=== PATIENT | female | born 1995 | race Caucasian/White ===

== ENCOUNTER 2018-04-26 09:33 | Emergency (ER) | payer BC ==
[2018-04-26] MEDS ORDERED: Sodium Chloride 0.9% 1,000 ML IV ONE (10:06)
[2018-04-26] MEDS ORDERED: Sodium Chloride 0.9% 10 ML Syringe FLUSH PRN (10:06)
[2018-04-26] MEDS ORDERED: Sodium Chloride 0.9% 2.5 ML Syringe FLUSH PRN (10:06)
[2018-04-26] MEDS ORDERED: Ondansetron 4 MG/2 ML SDV IVPUSH ONE (10:06)
--- NOTE | 2018-04-26 10:07 | EDM.PDOC ---
ED HPI GENERAL MEDICAL PROBLEM - General Chief Complaint: Gastrointestinal Problem Stated Complaint: FLU SYMPTOMS Time Seen by Provider: 04/26/18 10:07 Source of Information: Reports: Patient History Limitations: Reports: Intoxication - History of Present Illness INITIAL COMMENTS - FREE TEXT/NARRATIVE: HISTORY AND PHYSICAL: History of present illness: Patient is a 22-year-old female approximately 7 weeks gestation here with complaint of nausea and vomiting. LMP 03/13/18. She has had confirmation of at [facility] and has her first OB appointment with Dr. Farfan in 2 days. She states she has had nausea and vomiting for the past 3 weeks but has been worse in the past 3 days. States she can't keep anything down, vomiting every time she drinks water. She has been taking vitamin B6 and unisom as well as diclegis without any relief of symptoms. She denies any abdominal pain or cramping, vaginal bleeding or discharge, urinary symptoms, fevers, chills, diarrhea. She does report a mild cough. She denies any significant past medical history. Review of systems: As per history of present illness and below otherwise all systems reviewed and negative. Past medical history: As per history of present illness and as reviewed below otherwise noncontributory. Surgical history: As per history of present illness and as reviewed below otherwise noncontributory. Social history: No reported history of drug or alcohol abuse. Family history: As per history of present illness and as reviewed below otherwise noncontributory. Physical exam: General: Patient sitting comfortably in no acute distress and nontoxic appearing HEENT: Mucous membranes dry. Atraumatic, normocephalic, pupils reactive, negative for conjunctival pallor or scleral icterus, throat clear, neck supple, nontender, trachea midline. No meningeal signs. Lungs: Clear to auscultation, breath sounds equal bilaterally, chest nontender. Heart: S1S2, regular, negative for clicks, rubs, or overt murmur. Abdomen: Soft, nondistended, nontender. Negative for masses or hepatosplenomegaly. Negative for costovertebral tenderness. Pelvis: Stable nontender. Genitourinary: Deferred. Rectal: Deferred. Extremities: Atraumatic, negative for cords or calf pain. Neurovascular unremarkable. Neuro: Awake, alert, oriented. Cranial nerves II through XII unremarkable. Cerebellum unremarkable. Motor and sensory unremarkable throughout. Exam nonfocal. Notes: Diagnostics: CBC, CMP, UA Therapeutics: 1L Normal Saline IV 4mg Zofran IV Prescriptions: Zofran 4mg ODT Impression: Nausea/vomiting in first trimester Plan: 1. Drink plenty of small sips of fluids throughout the day. Zofran as needed for nausea. 2. Follow up with OB 3. Return to ED as needed as discussed Definitive disposition and diagnosis as appropriate pending reevaluation and review of above. 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 Musculoskeletal History: Reports: None Neurological History: Reports: None Psychiatric History: Reports: Anxiety Endocrine/Metabolic History: Reports: None Hematologic History: Reports: None Immunologic History: Reports: None Oncologic (Cancer) History: Reports: None Dermatologic History: Reports: None - Infectious Disease History Infectious Disease History: Reports: Chicken Pox - Past Surgical History Head Surgeries/Procedures: Reports: None HEENT Surgical History: Reports: Adenoidectomy, Tonsillectomy Cardiovascular Surgical History: Reports: None Respiratory Surgical History: Reports: None GI Surgical History: Reports: None Female Surgical History: Reports: None Endocrine Surgical History: Reports: None Neurological Surgical History: Reports: None Musculoskeletal Surgical History: Reports: None Oncologic Surgical History: Reports: None Dermatological Surgical History: Reports: None Social & Family History - Family History Family Medical History: Noncontributory - Tobacco Use Smoking Status *Q: Never Smoker Second Hand Smoke Exposure: No - Caffeine Use Caffeine Use: Reports: Soda - Recreational Drug Use Recreational Drug Use: No ED ROS GENERAL - Review of Systems Review Of Systems: ROS reveals no pertinent complaints other than HPI. ED EXAM - Physical Exam Exam: See Below (see dictation) Course - Vital Signs Last Recorded V/S: Last Vital Signs Temp 97.4 F 04/26/18 09:42 Pulse 86 04/26/18 09:42 Resp 18 04/26/18 09:42 BP 124/87 04/26/18 09:42 Pulse Ox 99 04/26/18 09:42 - Orders/Labs/Meds Orders: Active Orders 24 hr Category Date Time Status Sodium Chloride 0.9% [Saline Flush] Med 04/26/18 10:06 Active 10 ml FLUSH ASDIRECTED PRN Sodium Chloride 0.9% [Saline Flush] Med 04/26/18 10:06 Active 2.5 ml FLUSH ASDIRECTED PRN Saline Lock Insert [OM.PC] Stat Oth 04/26/18 10:06 Ordered Medication Orders Sodium Chloride (Saline Flush) 10 ml FLUSH ASDIRECTED PRN PRN Reason: Keep Vein Open Sodium Chloride (Saline Flush) 2.5 ml FLUSH ASDIRECTED PRN PRN Reason: Keep Vein Open Labs: Laboratory Tests 04/26/18 04/26/18 04/26/18 Range/Units 10:21 10:21 12:18 WBC 8.73 (4.0-11.0) K/uL RBC 4.83 (4.30-5.90) M/uL Hgb 14.0 (12.0-16.0) g/dL Hct 39.9 (36.0-46.0) % MCV 82.6 (80.0-98.0) fL MCH 29.0 (27.0-32.0) pg MCHC 35.1 (31.0-37.0) g/dL RDW Std Deviation 37.3 (28.0-62.0) fl RDW Coeff of Dean 12 (11.0-15.0) % Plt Count 324 (150-400) K/uL MPV 9.80 (7.40-12.00) fL Neut % (Auto) 74.2 (48.0-80.0) % Lymph % (Auto) 18.4 (16.0-40.0) % Bryan % (Auto) 7.2 (0.0-15.0) % Eos % (Auto) 0.0 (0.0-7.0) % Baso % (Auto) 0.2 (0.0-1.5) % Neut # (Auto) 6.5 H (1.4-5.7) K/uL Lymph # (Auto) 1.6 (0.6-2.4) K/uL Bryan # (Auto) 0.6 (0.0-0.8) K/uL Eos # (Auto) 0.0 (0.0-0.7) K/uL Baso # (Auto) 0.0 (0.0-0.1) K/uL Nucleated RBC % 0.0 /100WBC Nucleated RBCs # 0 K/uL Sodium 134 L (136-145) mmol/L Potassium 3.3 L (3.5-5.1) mmol/L Chloride 101 (98-107) mmol/L Carbon Dioxide 18.4 L (21.0-32.0) mmol/L BUN 8 (7.0-18.0) mg/dL Creatinine 0.6 (0.6-1.0) mg/dL Est Cr Clr Drug Dosing 103.85 mL/min Estimated GFR (MDRD) > 60.0 ml/min Glucose 75 (74-106) mg/dL Calcium 9.7 (8.5-10.1) mg/dL Total Bilirubin 0.8 (0.2-1.0) mg/dL AST 13 L (15-37) IU/L ALT 23 (14-63) IU/L Alkaline Phosphatase 52 (46-116) U/L Total Protein 7.9 (6.4-8.2) g/dL Albumin 4.4 (3.4-5.0) g/dL Globulin 3.5 (2.6-4.0) g/dL Albumin/Globulin Ratio 1.3 (0.9-1.6) Urine Color YELLOW Urine Appearance CLEAR Urine pH 6.0 (5.0-8.0) Ur Specific Finley >= 1.030 (1.001-1.035) Urine Protein TRACE H (NEGATIVE) mg/dL Urine Glucose (UA) NEGATIVE (NEGATIVE) mg/dL Urine Ketones >=80 (NEGATIVE) mg/dL Urine Occult Blood NEGATIVE (NEGATIVE) Urine Nitrite NEGATIVE (NEGATIVE) Urine Bilirubin SMALL H (NEGATIVE) Urine Ictotest NEGATIVE Urine Urobilinogen 0.2 (<2.0) EU/dL Ur Leukocyte Esterase NEGATIVE (NEGATIVE) Urine RBC 0-1 (0-2/HPF) Urine WBC 0-1 (0-5/HPF) Ur Epithelial Cells OCCASIONAL (NONE-FEW) Urine Bacteria RARE (NEGATIVE) Meds: Medications Generic Name Dose Route Start Last Admin Trade Name Freq PRN Reason Stop Dose Admin Sodium Chloride 10 ml 04/26/18 10:06 Saline Flush FLUSH ASDIRECTED PRN Keep Vein Open Sodium Chloride 2.5 ml 04/26/18 10:06 Saline Flush FLUSH ASDIRECTED PRN Keep Vein Open Discontinued Medications Generic Name Dose Route Start Last Admin Trade Name Sumaya PRN Reason Stop Dose Admin Sodium Chloride 1,000 mls @ 999 mls/hr 04/26/18 10:06 04/26/18 10:18 Normal Saline IV 04/26/18 11:06 999 mls/hr STAT ONE Administration Ondansetron HCl 4 mg 04/26/18 10:06 04/26/18 10:18 Zofran IVPUSH 04/26/18 10:07 4 mg ONETIME ONE Administration Departure - Departure Time of Disposition: 12:31 Disposition: Home, Self-Care 01 Condition: Good Clinical Impression: Vomiting of - Discharge Information Referrals: Enriqueta Jane, CHARGE POSTER [Primary Care Provider] - Forms: ED Department Discharge Additional Instructions: The following information is given to patients seen in the emergency department who are being discharged to home. This information is to outline your options for follow-up care. We provide all patients seen in our emergency department with a follow-up referral. The need for follow-up, as well as the timing and circumstances, are variable depending upon the specifics of your emergency department visit. If you don't have a primary care physician on staff, we will provide you with a referral. We always advise you to contact your personal physician following an emergency department visit to inform them of the circumstance of the visit and for follow-up with them and/or the need for any referrals to a consulting specialist. The emergency department will also refer you to a specialist when appropriate. This referral assures that you have the opportunity for follow-up care with a specialist. All of these measure are taken in an effort to provide you with optimal care, which includes your follow-up. Under all circumstances we always encourage you to contact your private physician who remains a resource for coordinating your care. When calling for follow-up care, please make the office aware that this follow-up is from your recent emergency room visit. If for any reason you are refused follow-up, please contact the [facility] Emergency Department at and asked to speak to the emergency department charge nurse. [facility] [place] [address] [place] [id number] 1. Drink plenty of small sips of fluids throughout the day. Zofran as needed for nausea. 2. Follow up with OB 3. Return to ED as needed as discussed - My Orders Last 24 Hours: My Active Orders 04/26/18 10:06 Sodium Chloride 0.9% [Saline Flush] 10 ml FLUSH ASDIRECTED PRN Sodium Chloride 0.9% [Saline Flush] 2.5 ml FLUSH ASDIRECTED PRN Saline Lock Insert [OM.PC] Stat - Assessment/Plan Last 24 Hours: My Active Orders 04/26/18 10:06 Sodium Chloride 0.9% [Saline Flush] 10 ml FLUSH ASDIRECTED PRN Sodium Chloride 0.9% [Saline Flush] 2.5 ml FLUSH ASDIRECTED PRN Saline Lock Insert [OM.PC] Stat
[2018-04-26 10:55] LABS: CHLORIDE,CL 101 mmol/L (98-107); SODIUM,NA 134 mmol/L (136-145)
== END 2018-04-26 13:02 | disposition home or self-care (01) ==
LOC: MW.ED 09:33
DX: O21.9 Vomiting of pregnancy, unspecified (principal); Z3A.01 Less than 8 weeks gestation of pregnancy
CPT/HCPCS: 36415; 80053; 81001; 85025; 87804; 96361; 96374; 99284; J2405; J7040

== ENCOUNTER 2018-12-15 00:29 | Inpatient (IN) | payer OTHER ==
[2018-12-15] MEDS ORDERED: Butorphanol 1 MG/ML SDV IVPUSH PRN (01:59)
[2018-12-15] MEDS ORDERED: Sodium Chloride 0.9% 10 ML Syringe FLUSH PRN (01:59)
[2018-12-15] MEDS ORDERED: Methylergonovine 0.2 MG/1 ML Amp IM PRN (01:59)
[2018-12-15] MEDS ORDERED: Misoprostol 200 MCG Tab PO PRN (01:59)
[2018-12-15] MEDS ORDERED: Lidocaine 1% 50 ML MDV INJECT PRN (01:59)
[2018-12-15] MEDS ORDERED: Tranexamic Acid 1,000 MG in Sodium Chloride 0.9% 100 ML IV PRN (01:59)
[2018-12-15] MEDS ORDERED: Sodium Chloride 0.9% 2.5 ML Syringe FLUSH PRN (01:59)
[2018-12-15] MEDS ORDERED: Carboprost Tromethamine 250 MCG/1 ML Amp IM PRN (01:59)
[2018-12-15] MEDS ORDERED: Water For Irrigation,Sterile 1,000 ML Container IRR PRN (01:59)
[2018-12-15] MEDS ORDERED: Sodium Chloride 0.9% 10 ML SDV IV PRN (01:59)
[2018-12-15] MEDS ORDERED: Oxytocin/0.9 % Sodium Chloride 30 UNIT/500 ML BAG IV SCH (02:00)
[2018-12-15] MEDS: Lactated Ringers 1,000 ML IV SCH ×4 (02:24→10:25)
[2018-12-15] MEDS: Ondansetron 4 MG/2 ML SDV IVPUSH PRN ×2 (03:10→11:33)
[2018-12-15] MEDS ORDERED: Ropivacaine HCl/PF 100 ML ONE (03:38)
[2018-12-15] MEDS ORDERED: fentaNYL 100 MCG/2 ML SDV ONE ×2 (03:38→08:52)
--- NOTE | 2018-12-15 04:06 | PCM.PREANE ---
Preanesthetic Assessment - Anesthesia/Transfusion/Family Hx Anesthesia History: Prior Anesthesia Without Reaction Family History of Anesthesia Reaction: No Transfusion History: No Prior Transfusion(s) - Physical Assessment Height: 1.52 m Weight: 60.781 kg ASA Class: 1 Mental Status: Alert & Oriented x3 Dentition: Reports: Normal Dentition - Lab Values: Laboratory Last Values WBC 14.90 K/uL (4.0-11.0) H 12/15/18 02:15 RBC 3.77 M/uL (4.30-5.90) L 12/15/18 02:15 Hgb 11.8 g/dL (12.0-16.0) L 12/15/18 02:15 Hct 33.0 % (36.0-46.0) L 12/15/18 02:15 MCV 87.5 fL (80.0-98.0) 12/15/18 02:15 MCH 31.3 pg (27.0-32.0) 12/15/18 02:15 MCHC 35.8 g/dL (31.0-37.0) 12/15/18 02:15 RDW Std Deviation 42.9 fl (28.0-62.0) 12/15/18 02:15 RDW Coeff of Dean 13 % (11.0-15.0) 12/15/18 02:15 Plt Count 190 K/uL (150-400) 12/15/18 02:15 MPV 10.40 fL (7.40-12.00) 12/15/18 02:15 Nucleated RBC % 0.0 /100WBC 12/15/18 02:15 Nucleated RBCs # 0 K/uL 12/15/18 02:15 Blood Type A POSITIVE 12/15/18 02:15 Antibody Screen NEGATIVE 12/15/18 02:15 - Allergies Allergies/Adverse Reactions: Allergies Allergy/AdvReac Type Severity Reaction Status Date / Time No Known Allergies Allergy Verified 04/26/18 09:42 - Acknowledgements Anesthesia Type Planned: Epidural Pt an Appropriate Candidate for the Planned Anesthesia: Yes Alternatives and Risks of Anesthesia Discussed w Pt/Guardian: Yes Pt/Guardian Understands and Agrees with Anesthesia Plan: Yes PreAnesthesia Questionnaire HEENT History: Reports: None Cardiovascular History: Reports: None Respiratory History: Reports: Asthma Gastrointestinal History: Reports: None Genitourinary History: Reports: None 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: Musculoskeletal History: Reports: None Neurological History: Reports: None Psychiatric History: Reports: Anxiety Endocrine/Metabolic History: Reports: None Hematologic History: Reports: None Immunologic History: Reports: None Oncologic (Cancer) History: Reports: None Dermatologic History: Reports: None - Infectious Disease History Infectious Disease History: Reports: Chicken Pox - Past Surgical History Head Surgeries/Procedures: Reports: None HEENT Surgical History: Reports: Adenoidectomy, Oral Surgery, Tonsillectomy Other HEENT Surgeries/Procedures: wisdom teeth extraction Cardiovascular Surgical History: Reports: None Respiratory Surgical History: Reports: None GI Surgical History: Reports: None Female Surgical History: Reports: None Endocrine Surgical History: Reports: None Neurological Surgical History: Reports: None Musculoskeletal Surgical History: Reports: None Oncologic Surgical History: Reports: None Dermatological Surgical History: Reports: None - SUBSTANCE USE Smoking Status *Q: Never Smoker Second Hand Smoke Exposure: No Recreational Drug Use History: No - HOME MEDS Home Medications: Home Meds Nausea Medication 1 dose PO DAILY 04/26/18 [History] Ondansetron [Zofran ODT] 4 mg PO Q6H PRN #10 tab.dis 04/26/18 [Rx] Albuterol Sulfate [Proair Hfa] 2 puff PO ASDIRECTED PRN 12/15/18 [History] B6/mg/Turm/Herlinda/Anis/Gar/Gin/Sp [Morning Sickless Combo Pack] 1 tab PO DAILY [History] Docusate Sodium [Colace] 1 tab PO DAILY 12/15/18 [History] Doxylamine Succinate [Unisom] 1 tab PO DAILY 12/15/18 [History] - CURRENT (IN HOUSE) MEDS Current Meds: Current Medications Butorphanol Tartrate (Stadol) 1 mg IVPUSH Q1H PRN PRN Reason: Pain Last Admin: 12/15/18 02:25 Dose: 1 mg Carboprost Tromethamine (Hemabate Ds) 250 mcg IM ASDIRECTED PRN PRN Reason: Post Hemorrhage Lactated Ringer's (Ringers, Lactated) 1,000 mls @ 150 mls/hr IV ASDIRECTED STARLA Last Admin: 12/15/18 03:41 Dose: 999 mls/hr Oxytocin/Sodium Chloride (Oxytocin 30 Unit/500 Ml-Ns) 30 unit in 500 mls @ 500 mls/hr IV TITRATE STARLA Tranexamic Acid 1,000 mg/ (Sodium Chloride) 110 mls @ 660 mls/hr IV ONETIME PRN PRN Reason: Bleeding Lidocaine HCl (Xylocaine 1%) 50 ml INJECT ONETIME PRN PRN Reason: Laceration repair Methylergonovine Maleate (Methergine) 0.2 mg IM ASDIRECTED PRN PRN Reason: Post Hemorrhage Misoprostol (Cytotec) 200 mcg PO ONETIME PRN PRN Reason: Post Hemorrhage Ondansetron HCl (Zofran) 4 mg IVPUSH Q6H PRN PRN Reason: Nausea/Vomiting Last Admin: 12/15/18 03:10 Dose: 4 mg Sodium Chloride (Saline Flush) 10 ml FLUSH ASDIRECTED PRN PRN Reason: Keep Vein Open Sodium Chloride (Saline Flush) 2.5 ml FLUSH ASDIRECTED PRN PRN Reason: Keep Vein Open Sodium Chloride (Normal Saline) 10 ml IV ASDIRECTED PRN PRN Reason: IV Use Sterile Water (Sterile Water For Irrigation) 1,000 ml IRR ASDIRECTED PRN PRN Reason: delivery Discontinued Medications Fentanyl (Sublimaze) Confirm Administered Dose 100 mcg .ROUTE .STFive-Thirty-MED ONE Stop: 12/15/18 03:39 Ropivacaine (Naropin 0.2%) Confirm Administered Dose 100 mls @ as directed .ROUTE .STK-MED ONE Stop: 12/15/18 03:39
--- NOTE | 2018-12-15 04:10 | PCM.PRNOTE ---
- Free Text/Narrative Note: Anes Note 0335 Patient requests epidural for L&D. Sitting position. Level L3-L4, midline approach. Chloraprep scrub to lumbar area. Sterile fenestrated drape applied. Steril technique. Epidural space easily achieved second attempt. DORIS at 4 cm. Epidural cath threaded to 9 cm. Sterile adhesive dressing applied. 0355 Test dose 3 cc 1.5% lido with epi negative. 0358 load 10 cc 0.2% ropivicaine with 1 mcg/cc fentanyl in slow divided doses. 0402 Tire Man started with same solution at 8 cc hr with 6 cc q 20 min prn bolus. Cristopher Well. Time with patient [id number] Morgan Kirkpatrick MACHINE CLOTH TRIMMER
[2018-12-15] MEDS ORDERED: Bupivacaine 0.5% 10 ML SDV ONE (07:28)
--- NOTE | 2018-12-15 07:37 | PCM.SN ---
- Free Text/Narrative Note: Called by nursing as the patient is having increased pain in her pelvis that has not been relieved by the epidural MANAGER QUALITY IMPROVEMENT. 0.5% Bupivacaine 5mL given via epidural catheter. VSS. Pt states her pain is improving at this time. Anesthesia time: [id number]
[2018-12-15] MEDS ORDERED: Acetaminophen 500 MG Tab PO PRN (14:19)
[2018-12-15] MEDS ORDERED: Witch Hazel Medicated Pads 40/Jar TOP PRN (14:19)
[2018-12-15] MEDS ORDERED: Aluminum Hydroxide/Magnesium Hydroxide/Simethicone Susp 30 ML Cup PO PRN (14:19)
[2018-12-15] MEDS ORDERED: Benzocaine/Menthol 20%-0.5% Spray 78 GM Cannister TOP PRN (14:19)
[2018-12-15] MEDS ORDERED: Bisacodyl 10 MG Supp RECTAL PRN (14:19)
[2018-12-15] MEDS ORDERED: oxyCODONE 5 MG Tab PO PRN (14:19)
[2018-12-15] MEDS ORDERED: Lanolin 100% Cream 7 GM Tube TOP PRN (14:19)
[2018-12-15] MEDS ORDERED: Ibuprofen 400 MG Tab PO PRN (14:19)
--- NOTE | 2018-12-15 14:25 | PCM.OPNOTE ---
- General Post-Op/Procedure Note Date of Surgery/Procedure: 12/15/18 Operative Procedure(s): /2nd MLL repaired Findings: Viable female APGARs 8, 9 weight pending. Spontaneous delivery intact placenta with 3V cord Pre Op Diagnosis: 41 week IUP. Labor Post-Op Diagnosis: Same Anesthesia Technique: Epidural Primary Surgeon: Lupe Farfan Poultry Offal Icer: Elpidio Gaitan EBL in mLs: 300 Complications: none known Condition: Good Free Text/Narrative:: Dictation [id number]
[2018-12-15] MEDS: Acetaminophen 500 MG Tab PO PRN ×2 (14:47→19:38)
[2018-12-15] MEDS: Ibuprofen 800 MG Tab PO PRN (14:47)
--- NOTE | 2018-12-15 19:22 | OR ---
SURGEON: Lupe Farfan M.D. DATE OF PROCEDURE: 12/15/2018 PREOPERATIVE DIAGNOSES: 1. 41-week intrauterine . 2. Labor. POSTOPERATIVE DIAGNOSES: 1. 41-week intrauterine . 2. Labor. PROCEDURES: Spontaneous vaginal delivery with second-degree midline laceration repair. SOLID WASTE COLLECTION WORKER: PHILLIP Conner. ANESTHESIA: Epidural. ESTIMATED BLOOD LOSS: 300 mL. COMPLICATIONS: None. FINDINGS: Viable female. scores of 8 at one minute and 9 at five minutes. Weight is pending. Spontaneous delivery, intact placenta, 3-vessel cord. DISPOSITION: Infant to nursery and mom in LDRP. PROCEDURE DETAIL: Saima is a 23-year-old primigravida at 41 weeks' gestational age, who was admitted on the vascular neurologist of 12/15/2018, with findings of active labor. She progressed through the vascular neurologist hours with amniotomy, clear fluid was found to be present. heart tones remained category 1. Shortly before 09:00 a.m., she was found to be 5 cm, 80% effaced, and -2 station. She progressed over the next couple of hours to 9 cm and then shortly before 01:00 p.m., she was found to be complete, 100% effaced, 0 station, and began pushing efforts. She pushed adequately over the next hour, had undergone an epidural and was quite comfortable with this. She pushed to a +4 station. I was called for delivery. However, between the interval of calling me and arrival, the patient delivered precipitously with attending nurse at her side. Upon my arrival, the MS4 had the handed off to mother's chest. Cord head ceased pulsating, therefore, it was clamped x2 and cut. Cord arterial, cord venous, and cord blood sampling were obtained. Light pressure was applied while the placenta was delivered spontaneously intact. Vigorous fundal uterine massage was applied while 30 units Pitocin was delivered in 500 mL of IV fluid. Upon inspection of cervix, vaginal sidewalls and perineum, there was found to be a deep second-degree midline laceration. The deeper layers were reapproximated with [id number] sutures using 3-0 Vicryl, and the remainder of the perineal laceration was repaired in usual fashion. Upon inspection of cervix, vaginal sidewalls and perineum, they were now found to be intact. Uterus remained firm. Sponge count, needle count, and instrument count were correct. The patient has tolerated the procedure well overall. She will remain in LDRP. to nursery. ANASTASIIA / RUSTAM /[id number]
[2018-12-15] MEDS: Docusate Sodium 100 MG Cap PO PRN (20:27)
[2018-12-16] MEDS: Ibuprofen 800 MG Tab PO PRN ×3 (04:25→20:19)
[2018-12-16] MEDS: Acetaminophen 500 MG Tab PO PRN ×2 (04:52→18:31)
--- NOTE | 2018-12-16 07:01 | PCM.PNPP ---
- General Info Date of Service: 12/16/18 Functional Status: Reports: Pain Controlled, Tolerating Diet, Ambulating, Urinating - Review of Systems General: Reports: Fatigue. Denies: Fever, Weakness Pulmonary: Denies: Shortness of Breath Cardiovascular: Denies: Chest Pain, Palpitations, Lightheadedness Gastrointestinal: Denies: Abdominal Pain, Nausea, Vomiting Genitourinary: Denies: Flank Pain Musculoskeletal: Reports: No Symptoms Skin: Reports: No Symptoms Neurological: Reports: No Symptoms Psychiatric: Reports: No Symptoms - General Info Date of Service: 12/16/18 - Patient Data Vital Signs - Most Recent: Last Vital Signs Temp Pulse 84 12/16/18 05:00 Resp 16 12/16/18 04:00 BP 122/76 12/16/18 05:00 Pulse Ox 98 12/16/18 04:00 Weight - Most Recent: 60.781 kg Lab Results - Last 24 Hours: Laboratory Results - last 24 hr 12/15/18 12/16/18 Range/Units 13:53 05:56 Hgb 9.5 L (12.0-16.0) g/dL Hct 27.9 L (36.0-46.0) % Cord ABG pH 7.292 (7.18-7.38) Cord ABG Base Excess -6 (-10--2) Cord VBG pH 7.296 (7.25-7.45) Cord VBG Base Excess -7 (-10--2) Med Orders - Current: Current Medications Acetaminophen (Tylenol Extra Strength) 500 mg PO Q4H PRN PRN Reason: Pain Acetaminophen (Tylenol Extra Strength) 1,000 mg PO Q4H PRN PRN Reason: Pain Last Admin: 12/16/18 04:52 Dose: 1,000 mg Al Hydroxide/Mg Hydroxide (Mag-Al Plus) 30 ml PO Q8H PRN PRN Reason: Heartburn Benzocaine/Menthol (Dermoplast Pain Relief 20%-0.5% [place]) 78 gm TOP ASDIRECTED PRN PRN Reason: Perineal Comfort Measure Last Admin: 12/15/18 19:41 Dose: 1 canister Bisacodyl (Dulcolax) 10 mg RECTAL ONETIME PRN PRN Reason: Constipation Carboprost Tromethamine (Hemabate Ds) 250 mcg IM ASDIRECTED PRN PRN Reason: Post Hemorrhage Docusate Sodium (Colace) 100 mg PO BID PRN PRN Reason: Constipation Last Admin: 12/15/18 20:27 Dose: 100 mg Emollient Ointment (Lansinoh Hpa) 0 gm TOP ASDIRECTED PRN PRN Reason: Sore Nipples Lactated Ringer's (Ringers, Lactated) 1,000 mls @ 150 mls/hr IV ASDIRECTED STARLA Last Admin: 12/15/18 10:25 Dose: 150 mls/hr Oxytocin/Sodium Chloride (Oxytocin 30 Unit/500 Ml-Ns) 30 unit in 500 mls @ 500 mls/hr IV TITRATE STARLA Tranexamic Acid 1,000 mg/ (Sodium Chloride) 110 mls @ 660 mls/hr IV ONETIME PRN PRN Reason: Bleeding Ibuprofen (Motrin) 400 mg PO Q4H PRN PRN Reason: Pain Ibuprofen (Motrin) 800 mg PO Q6H PRN PRN Reason: Pain Last Admin: 12/16/18 04:25 Dose: 800 mg Methylergonovine Maleate (Methergine) 0.2 mg IM ASDIRECTED PRN PRN Reason: Post Hemorrhage Ondansetron HCl (Zofran) 4 mg IVPUSH Q6H PRN PRN Reason: Nausea/Vomiting Last Admin: 12/15/18 11:33 Dose: 4 mg Oxycodone HCl (Oxycodone) 5 mg PO Q2H PRN PRN Reason: Pain Sodium Chloride (Saline Flush) 10 ml FLUSH ASDIRECTED PRN PRN Reason: Keep Vein Open Sodium Chloride (Saline Flush) 2.5 ml FLUSH ASDIRECTED PRN PRN Reason: Keep Vein Open Sodium Chloride (Normal Saline) 10 ml IV ASDIRECTED PRN PRN Reason: IV Use Sterile Water (Sterile Water For Irrigation) 1,000 ml IRR ASDIRECTED PRN PRN Reason: delivery Witch Adela (Tucks) 1 pad TOP ASDIRECTED PRN PRN Reason: comfort care Last Admin: 12/15/18 19:40 Dose: 1 container Discontinued Medications Bupivacaine HCl (Sensorcaine-Mpf 0.5%) Confirm Administered Dose 10 ml .ROUTE .STK-MED ONE Stop: 12/15/18 07:29 Butorphanol Tartrate (Stadol) 1 mg IVPUSH Q1H PRN PRN Reason: Pain Last Admin: 12/15/18 02:25 Dose: 1 mg Fentanyl (Sublimaze) Confirm Administered Dose 100 mcg .ROUTE .STK-MED ONE Stop: 12/15/18 03:39 Fentanyl (Sublimaze) Confirm Administered Dose 100 mcg .ROUTE .STK-MED ONE Stop: 12/15/18 08:53 Ropivacaine (Naropin 0.2%) Confirm Administered Dose 100 mls @ as directed .ROUTE .STK-MED ONE Stop: 12/15/18 03:39 Fentanyl/Bupivacaine HCl (Ovtpkpfh-Dweam-Ex 2 Mcg/Ml-0.125%) Confirm Administered Dose 100 mls @ as directed .ROUTE .STK-MED ONE Stop: 12/15/18 10:49 Lidocaine HCl (Xylocaine 1%) 50 ml INJECT ONETIME PRN PRN Reason: Laceration repair Misoprostol (Cytotec) 200 mcg PO ONETIME PRN PRN Reason: Post Hemorrhage - Interaction Support Person: , Sister - Recovery Exam Fundal Tone: Firm Fundal Level: At Umbilicus Fundal Placement: Right Lochia Amount: Small Lochia Color: Rubra/Red Perineum Description: Other (see below) Other Perinuem Description: 2nd degree repaired midline laceration. Episiotomy/Laceration: Approximated Bladder Status: Voiding Urinary Elimination: Voided - Exam General: Alert, Oriented Lungs: Normal Respiratory Effort Cardiovascular: Regular Rate, Regular Rhythm GI/Abdominal Exam: Normal Bowel Sounds, Soft Extremities: Pedal Edema (trace). No: Neda's Sign Skin: Warm, Dry, Intact Neurological: No New Focal Deficit Psy/Mental Status: Alert, Normal Affect, Normal Mood - Problem List & Annotations (1) Vaginal delivery SNOMED Code(s): 066637273 Code(s): O80 - ENCOUNTER FOR FULL-TERM UNCOMPLICATED DELIVERY Status: Acute Current Visit: Yes - Problem List Review Problem List Initiated/Reviewed/Updated: Yes - My Orders Last 24 Hours: My Active Orders 12/15/18 14:19 Patient Status [ADT] Routine May Shower [RC] ASDIRECTED Up ad Marce [RC] ASDIRECTED Vital Signs [RC] PER UNIT ROUTINE Acetaminophen [Tylenol Extra Strength] 1,000 mg PO Q4H PRN Acetaminophen [Tylenol Extra Strength] 500 mg PO Q4H PRN Alum Hydrox/Mag Hydrox/Simeth [Mag-Al Plus] 30 ml PO Q8H PRN Benzocaine/Menthol [Dermoplast Pain Relief 20%-0.5% [place]] 78 gm TOP ASDIRECTED PRN Bisacodyl [Dulcolax] 10 mg RECTAL ONETIME PRN Docusate Sodium [Colace] 100 mg PO BID PRN Ibuprofen [Motrin] 400 mg PO Q4H PRN Ibuprofen [Motrin] 800 mg PO Q6H PRN Lanolin [Lansinoh HPA] See Dose Instructions TOP ASDIRECTED PRN Witch Adela [Tucks] 1 pad TOP ASDIRECTED PRN oxyCODONE 5 mg PO Q2H PRN Assess Lochia [WOMSER] Per Unit Routine Assess Uterine Involution [WOMSER] Per Unit Routine Breast Pump [WOMSER] Per Unit Routine Ice Therapy [OM.PC] Per Unit Routine Perineal Care [OM.PC] Per Unit Routine Peripheral IV Discontinue [OM.PC] Routine Sitz Bath [OM.PC] Per Unit Routine 12/15/18 Lunch Regular Diet [DIET] 12/16/18 06:59 Ready for Discharge [RC] PER UNIT ROUTINE - Assessment Assessment:: PPD 1 status post /2nd MLL repaired - Plan Plan:: Doing well overall, VS are stable. Labs are reassuring. Discharge to home later today. Discharge instructions reviewed. Follow up at [facility] 6 weeks
--- NOTE | 2018-12-16 07:05 | PCM48HPAN ---
Post Anesthesia Note - EVALUATION WITHIN 48HRS OF ANESTHETIC Vital Signs in Normal Range: Yes Patient Participated in Evaluation: Yes Respiratory Function Stable: Yes Airway Patent: Yes Cardiovascular Function Stable: Yes Hydration Status Stable: Yes Pain Control Satisfactory: Yes Nausea and Vomiting Control Satisfactory: Yes Mental Status Recovered: Yes Vital Signs: Last Vital Signs Temp Pulse 84 12/16/18 05:00 Resp 16 12/16/18 04:00 BP 122/76 12/16/18 05:00 Pulse Ox 98 12/16/18 04:00
--- NOTE | 2018-12-16 07:10 | PCM.SN ---
- Free Text/Narrative Note: Patient and decided to stay until tomorrow.
[2018-12-16] MEDS: Docusate Sodium 100 MG Cap PO PRN (07:40)
[2018-12-17] MEDS: Ibuprofen 800 MG Tab PO PRN ×2 (03:51→10:09)
[2018-12-17] MEDS: Acetaminophen 500 MG Tab PO PRN (07:29)
--- NOTE | 2018-12-17 08:37 | PCM.PNPP ---
- General Info Date of Service: 12/17/18 Functional Status: Reports: Pain Controlled, Tolerating Diet, Ambulating, Urinating - Review of Systems General: Reports: No Symptoms HEENT: Reports: No Symptoms Pulmonary: Reports: No Symptoms Cardiovascular: Reports: No Symptoms Gastrointestinal: Reports: No Symptoms Genitourinary: Reports: No Symptoms Musculoskeletal: Reports: No Symptoms Skin: Reports: No Symptoms Neurological: Reports: No Symptoms Psychiatric: Reports: No Symptoms - General Info Date of Service: 12/17/18 - Patient Data Vital Signs - Most Recent: Last Vital Signs Temp 36.4 C 12/17/18 07:36 Pulse 70 12/17/18 07:36 Resp 14 12/17/18 07:36 BP 120/63 12/17/18 07:36 Pulse Ox 94 L 12/17/18 07:36 Weight - Most Recent: 60.781 kg Med Orders - Current: Current Medications Acetaminophen (Tylenol Extra Strength) 500 mg PO Q4H PRN PRN Reason: Pain Acetaminophen (Tylenol Extra Strength) 1,000 mg PO Q4H PRN PRN Reason: Pain Last Admin: 12/17/18 07:29 Dose: 1,000 mg Al Hydroxide/Mg Hydroxide (Mag-Al Plus) 30 ml PO Q8H PRN PRN Reason: Heartburn Benzocaine/Menthol (Dermoplast Pain Relief 20%-0.5% [place]) 78 gm TOP ASDIRECTED PRN PRN Reason: Perineal Comfort Measure Last Admin: 12/15/18 19:41 Dose: 1 canister Bisacodyl (Dulcolax) 10 mg RECTAL ONETIME PRN PRN Reason: Constipation Carboprost Tromethamine (Hemabate Ds) 250 mcg IM ASDIRECTED PRN PRN Reason: Post Hemorrhage Docusate Sodium (Colace) 100 mg PO BID PRN PRN Reason: Constipation Last Admin: 12/16/18 07:40 Dose: 100 mg Emollient Ointment (Lansinoh Hpa) 0 gm TOP ASDIRECTED PRN PRN Reason: Sore Nipples Last Admin: 12/16/18 07:42 Dose: 7 gm Lactated Ringer's (Ringers, Lactated) 1,000 mls @ 150 mls/hr IV ASDIRECTED STARLA Last Admin: 12/15/18 10:25 Dose: 150 mls/hr Oxytocin/Sodium Chloride (Oxytocin 30 Unit/500 Ml-Ns) 30 unit in 500 mls @ 500 mls/hr IV TITRATE STARLA Tranexamic Acid 1,000 mg/ (Sodium Chloride) 110 mls @ 660 mls/hr IV ONETIME PRN PRN Reason: Bleeding Ibuprofen (Motrin) 400 mg PO Q4H PRN PRN Reason: Pain Ibuprofen (Motrin) 800 mg PO Q6H PRN PRN Reason: Pain Last Admin: 12/17/18 03:51 Dose: 800 mg Methylergonovine Maleate (Methergine) 0.2 mg IM ASDIRECTED PRN PRN Reason: Post Hemorrhage Ondansetron HCl (Zofran) 4 mg IVPUSH Q6H PRN PRN Reason: Nausea/Vomiting Last Admin: 12/15/18 11:33 Dose: 4 mg Oxycodone HCl (Oxycodone) 5 mg PO Q2H PRN PRN Reason: Pain Last Admin: 12/16/18 07:41 Dose: 5 mg Sodium Chloride (Saline Flush) 10 ml FLUSH ASDIRECTED PRN PRN Reason: Keep Vein Open Sodium Chloride (Saline Flush) 2.5 ml FLUSH ASDIRECTED PRN PRN Reason: Keep Vein Open Sodium Chloride (Normal Saline) 10 ml IV ASDIRECTED PRN PRN Reason: IV Use Sterile Water (Sterile Water For Irrigation) 1,000 ml IRR ASDIRECTED PRN PRN Reason: delivery [place] (Tucks) 1 pad TOP ASDIRECTED PRN PRN Reason: comfort care Last Admin: 12/15/18 19:40 Dose: 1 container Discontinued Medications Bupivacaine HCl (Sensorcaine-Mpf 0.5%) Confirm Administered Dose 10 ml .ROUTE .STK-MED ONE Stop: 12/15/18 07:29 Last Admin: 12/16/18 08:00 Dose: Not Given Butorphanol Tartrate (Stadol) 1 mg IVPUSH Q1H PRN PRN Reason: Pain Last Admin: 12/15/18 02:25 Dose: 1 mg Fentanyl (Sublimaze) Confirm Administered Dose 100 mcg .ROUTE .STK-MED ONE Stop: 12/15/18 03:39 Last Admin: 12/16/18 08:00 Dose: Not Given Fentanyl (Sublimaze) Confirm Administered Dose 100 mcg .ROUTE .STK-MED ONE Stop: 12/15/18 08:53 Last Admin: 12/16/18 08:01 Dose: Not Given Ropivacaine (Naropin 0.2%) Confirm Administered Dose 100 mls @ as directed .ROUTE .STK-MED ONE Stop: 12/15/18 03:39 Last Admin: 12/16/18 08:00 Dose: Not Given Fentanyl/Bupivacaine HCl (Ebgtcbzp-Aeanw-Oi 2 Mcg/Ml-0.125%) Confirm Administered Dose 100 mls @ as directed .ROUTE .STK-MED ONE Stop: 12/15/18 10:49 Last Admin: 12/16/18 08:01 Dose: Not Given Lidocaine HCl (Xylocaine 1%) 50 ml INJECT ONETIME PRN PRN Reason: Laceration repair Misoprostol (Cytotec) 200 mcg PO ONETIME PRN PRN Reason: Post Hemorrhage - Infant Interaction Infant Disposition, : Bloomery in Room with Family Interaction: Holding Infant Feeding: Breastfed ; Nursed Well Support Person: , Sister - Recovery Exam Fundal Tone: Firm Fundal Level: 1 Fingerbreadths Above Umbilicus Fundal Placement: Midline Lochia Amount: Scant Lochia Color: Rubra/Red Perineum Description: Other (see below) Other Perinuem Description: 2nd degree Episiotomy/Laceration: Approximated Bladder Status: Voiding Urinary Elimination: Voided - Exam General: Alert, Oriented HEENT: Pupils Equal Neck: Supple Lungs: Clear to Auscultation, Normal Respiratory Effort Cardiovascular: Regular Rate, Regular Rhythm GI/Abdominal Exam: Normal Bowel Sounds, Soft, No Organomegaly, No Distention, No Mass, Pelvis Stable Extremities: Normal Inspection, No Pedal Edema Skin: Warm, Dry, Intact Neurological: No New Focal Deficit Psy/Mental Status: Alert, Normal Affect, Normal Mood - Problem List & Annotations (1) Vaginal delivery SNOMED Code(s): 004244482 Code(s): O80 - ENCOUNTER FOR FULL-TERM UNCOMPLICATED DELIVERY Status: Acute Current Visit: Yes - Problem List Review Problem List Initiated/Reviewed/Updated: Yes - My Orders Last 24 Hours: My Active Orders 12/17/18 08:04 Ready for Discharge [RC] PER UNIT ROUTINE - Assessment Assessment:: PPD 2 after , elevated BP last night, but improved today. She will be dismissed to home. Denies any visual changes headache or other symptoms. - Plan Plan:: Discharge to home. Discharge instructions reviewed. Follow up at [facility] 6 weeks
[2018-12-17] MEDS: Docusate Sodium 100 MG Cap PO PRN (10:20)
== END 2018-12-17 13:00 | disposition home or self-care (01) | DRG 807 ==
LOC: MW.OBCHECK 00:29 → MW.OB 00:31 → MW.OBCHECK 01:58 → MW.OB 01:59 → OBSVTOIN 14:19 → MW.OB 17:40
PROVIDERS: ADMIT Obstetrics & Gynecology; ATTEND Obstetrics & Gynecology
PROC: 00HU33Z Insertion of Infusion Device into Spinal Canal, Percutaneous Approach (ICD-10-PCS; principal; 2018-12-15)
PROC: 10E0XZZ Delivery of Products of Conception, External Approach (ICD-10-PCS; 2018-12-15)
PROC: 0KQM0ZZ Repair Perineum Muscle, Open Approach (ICD-10-PCS; 2018-12-15)
PROC: 3E0R3BZ Introduction of Anesthetic Agent into Spinal Canal, Percutaneous Approach (ICD-10-PCS; 2018-12-15)
PROC: 10907ZC Drainage of Amniotic Fluid, Therapeutic from Products of Conception, Via Natural or Artificial Opening (ICD-10-PCS; 2018-12-15)
DX: O48.0 Post-term pregnancy (principal); Z37.0 Single live birth; O70.1 Second degree perineal laceration during delivery; O99.89 Other specified diseases and conditions complicating pregnancy, childbirth and the puerperium; O99.52 Diseases of the respiratory system complicating childbirth; O99.344 Other mental disorders complicating childbirth; F41.9 Anxiety disorder, unspecified; J45.909 Unspecified asthma, uncomplicated; R03.0 Elevated blood-pressure reading, without diagnosis of hypertension; Z3A.41 41 weeks gestation of pregnancy; O76 Abnormality in fetal heart rate and rhythm complicating labor and delivery; Z79.899 Other long term (current) drug therapy; Z98.890 Other specified postprocedural states
CPT/HCPCS: 36415; 51702; 59025; 59409; 82803; 85014; 85018; 85027; 86850; 86900; 86901; A9270-GY; J0595; J2405; J2590; J2795; J3010; J3490; J7120